=== PATIENT | female | born 1990 | race Caucasian/White ===

== ENCOUNTER 2017-07-20 13:33 | Emergency (ER) | payer BC, OTHER ==
[2017-07-20] MEDS ORDERED: CLEOCIN 150 MG CAPSULE PO ONE (13:46)
[2017-07-20] MEDS ORDERED: XYLOCAINE HCl Viscous MM ONE (13:47)
--- NOTE | 2017-07-20 13:55 | ERPHSYRPT ---
- History of Present Illness Time Seen by Provider: 07/20/17 13:44 Source: patient Exam Limitations: no limitations Patient Subjective Stated Complaint: pt here for a toothache to upper left mouth for 4 days, fever yesterday, seeing dentist on monday. Triage Nursing Assessment: pt has multi caries and broken teeth,has swelling to left side of face, redness to mouth Physician History: mild to mod constant ache upper left tooth for four days, no fever, no injury, speech fluent, no facial swelling Severity: moderate Associated Symptoms: No vomiting, No fever, No headaches Allergies/Adverse Reactions: ciprofloxacin [From Cipro] Allergy (Verified 07/20/17 13:44) ciprofloxacin HCl [From Cipro] Allergy (Verified 07/20/17 13:44) Hx Tetanus, Diphtheria Vaccination/Date Given: Yes (2012) Hx Influenza Vaccination/Date Given: No Hx Pneumococcal Vaccination/Date Given: No Immunizations Up to Date: Yes - Review of Systems Constitutional: No Symptoms Eyes: No Symptoms Ears, Nose, & Throat: No Stridor Respiratory: No Symptoms Neurological: No Dizziness Psychological: No Symptoms - Past Medical History Pertinent Past Medical History: Yes Neurological History: Epilepsy ENT History: No Pertinent History Cardiac History: No Pertinent History Respiratory History: No Pertinent History Endocrine Medical History: No Pertinent History Musculoskeletal History: No Pertinent History GI Medical History: No Pertinent History History: Other Psycho-Social History: No Pertinent History Female Reproductive Disorders: No Pertinent History Other Medical History: PYELONEPHRITIS - Past Surgical History Past Surgical History: No Neuro Surgical History: No Pertinent History Cardiac: No Pertinent History Respiratory: No Pertinent History Gastrointestinal: No Pertinent History Genitourinary: No Pertinent History Musculoskeletal: No Pertinent History Female Surgical History: Dilation & Curettage - Social History Smoking Status: Never smoker Exposure to second hand smoke: No Drug Use: none Patient Lives Alone: No - Female History Hx Last Menstrual Period: 3 weeks ago Hx Now: No - Nursing Vital Signs Nursing Vital Signs: Initial Vital Signs Temperature 97.7 F 07/20/17 13:40 Pulse Rate 72 07/20/17 13:40 Respiratory Rate 18 07/20/17 13:40 Blood Pressure 119/73 07/20/17 13:40 O2 Sat by Pulse Oximetry 100 07/20/17 13:40 Pain Scale Pain Intensity 9 - Physical Exam General Appearance: no apparent distress Eye Exam: PERRL/EOMI Ears, Nose, Throat Exam: other (tender left upper molar, no fluc mass, no trismus) Neck Exam: normal inspection Respiratory Exam: No respiratory distress Neurologic Exam: alert, oriented x 3, cooperative Skin Exam: normal color, warm, dry SpO2 Interpretation: normal SpO2: 100 Oxygen Delivery: Room Air Ordered Tests: Medication Summary Discontinued Medications Generic Name Dose Route Start Last Admin Trade Name Freq PRN Reason Stop Dose Admin Clindamycin HCl 300 mg 07/20/17 13:46 Cleocin 150 Mg Capsule PO 07/20/17 13:47 STAT ONE Lidocaine HCl 20 ml 07/20/17 13:47 Xylocaine Hcl Viscous * MM 07/20/17 13:48 PRN ONE - Progress Progress Note: 07/20/17 13:51 see a dentist, take cleocin, viscus lidocaine, return if worse Counseled pt/family regarding: diagnosis, need for follow-up - Departure Time of Disposition: 13:52 Departure Disposition: Home Clinical Impression: Tooth ache Condition: Stable Critical Care Time: No Referrals: [facility] [Primary Care Provider] - Prescriptions: Clindamycin HCl [Cleocin HCl] 300 mg PO TID #20 capsule Lidocaine HCl [Lidocaine HCl Viscous] 20 mg MM Q6-8HPRN PRN #1 ml PRN Reason: Pain
[2017-07-20] MEDS ORDERED: CLEOCIN 150 MG CAPSULE ONE (13:57)
[2017-07-20] MEDS ORDERED: XYLOCAINE HCl Viscous ONE (13:57)
[2017-07-20 15:05] VITALS: BP 111/66; PULSE 56; O2SAT 98
== END 2017-07-20 15:05 | disposition home or self-care (01) ==
LOC: ED 13:33
DX: K08.89 Other specified disorders of teeth and supporting structures (principal)
CPT/HCPCS: 99281; A9270-GY